=== PATIENT | male | born 1940 | race Caucasian/White ===

== ENCOUNTER 2021-11-27 13:21 | Observation (INO) | payer MEDICARE, OTHER ==
[~2021-11-27] VITALS: Ht 177.8 cm; Wt 90.7 kg
[2021-11-27 14:04] LABS: HEMOGLOBIN 18.6 gm/dl (14.0-17.5); RED BLOOD COUNT 5.42 M/UL (4.20-5.50); WHITE BLOOD COUNT 8.1 K/UL (4.5-11.0)
[2021-11-27 14:32] LABS: BUN/CREATININE RATIO 11 (0-10)
[2021-11-27] MEDS ORDERED: PROAIR HFA8.5 GM INH (16:43)
[2021-11-27] MEDS ORDERED: MELOXICAM15 MG PO (16:44)
[2021-11-27] MEDS ORDERED: MECLIZINE HCL25 MG PO (16:44)
[2021-11-28 02:59] LABS: HEMOGLOBIN 17.1 gm/dl (14.0-17.5); RED BLOOD COUNT 5.29 M/UL (4.20-5.50); WHITE BLOOD COUNT 8.7 K/UL (4.5-11.0)
[2021-11-28 03:50] LABS: BUN/CREATININE RATIO 12 (0-10)
[2021-11-29 02:28] LABS: RED BLOOD COUNT 5.34 M/UL (4.20-5.50); WHITE BLOOD COUNT 10.1 K/UL (4.5-11.0)
[2021-11-29 02:36] LABS: BUN/CREATININE RATIO 15 (0-10)
[2021-11-29] MEDS ORDERED: CEFUROXIME500 MG PO (08:49)
[2021-11-29] MEDS ORDERED: ASPIRIN EC81 MG PO (08:49)
[2021-11-29] MEDS ORDERED: AZITHROMYCIN500 MG PO (08:49)
== END 2021-11-29 11:32 | disposition home health service (06) ==
LOC: ER1 13:21 → CDU 16:29 → M/S 16:29
PROVIDERS: Family Medicine; Physician Assistant; ADMIT Internal Medicine
DX: R42 Dizziness and giddiness (principal); J44.9 Chronic obstructive pulmonary disease, unspecified; R09.02 Hypoxemia; M19.90 Unspecified osteoarthritis, unspecified site; F17.210 Nicotine dependence, cigarettes, uncomplicated; Z99.81 Dependence on supplemental oxygen; Z79.899 Other long term (current) drug therapy; Z79.1 Long term (current) use of non-steroidal anti-inflammatories (NSAID)
CPT/HCPCS: ECHO; 36415; 70450; 70551; 71045; 80048; 80053; 80061; 80307; 81001; 82550; 82553; 84484; 85025; 85027; 93005; 93306; 93880; 96374; 96376; 97161; 97165; 99285; G0378; J0456; J0696; J7030

== ENCOUNTER 2021-12-19 21:07 | Emergency (ER) | payer MEDICARE, OTHER ==
[~2021-12-19 21:07] MED LIST: ASPIRIN EC81 MG PO; AZITHROMYCIN500 MG PO; CEFUROXIME500 MG PO; MECLIZINE HCL25 MG PO; MELOXICAM15 MG PO; PROAIR HFA8.5 GM INH
[2021-12-19 23:45] LABS: HEMOGLOBIN 17.7 gm/dl (14.0-17.5); RED BLOOD COUNT 5.27 M/UL (4.20-5.50); WHITE BLOOD COUNT 7.1 K/UL (4.5-11.0)
[2021-12-20 00:08] LABS: BUN/CREATININE RATIO 13 (0-10)
[2021-12-20] MEDS ORDERED: MONODOX100 MG PO (01:07)
[2021-12-20] MEDS ORDERED: PROVENTIL HFA6.7 GM INH (01:07)
[2021-12-21] MEDS ORDERED: MELOXICAM15 MG PO (11:06)
== END 2021-12-20 01:25 | disposition home or self-care (01) ==
LOC: ER1 21:07
PROVIDERS: Physician Assistant
DX: J44.1 Chronic obstructive pulmonary disease with (acute) exacerbation (principal); F17.210 Nicotine dependence, cigarettes, uncomplicated; Z51.81 Encounter for therapeutic drug level monitoring
CPT/HCPCS: 71045; 80053; 82550; 82553; 83880; 84484; 85025; 85610; 85730; 96365; 99285; J0696; J2930

== ENCOUNTER 2021-12-20 14:03 | Observation (INO) | payer MEDICARE, OTHER ==
[~2021-12-20] VITALS: Ht 177.8 cm; Wt 86.2 kg
[~2021-12-20 14:03] MED LIST changes: +MONODOX100 MG PO; +PROVENTIL HFA6.7 GM INH
[2021-12-20 15:43] LABS: RED BLOOD COUNT 5.29 M/UL (4.20-5.50); WHITE BLOOD COUNT 12.3 K/UL (4.5-11.0)
[2021-12-20 16:19] LABS: BUN/CREATININE RATIO 17 (0-10)
[2021-12-21 06:45] LABS: RED BLOOD COUNT 4.81 M/UL (4.20-5.50); WHITE BLOOD COUNT 14.2 K/UL (4.5-11.0)
[2021-12-21 09:40] LABS: BUN/CREATININE RATIO 20 (0-10)
[2021-12-21] MEDS ORDERED: MELOXICAM15 MG PO (11:06)
--- NOTE | 2021-12-22 11:04 | NUR ---
PT O2 SAT 82%ON ROOM AIR.
[2021-12-22] MEDS ORDERED: YUPELRI175 MCG/3 NEB (12:10)
[2021-12-22] MEDS ORDERED: MEDROL DOSEPAK 24 MG PO (12:10)
[2021-12-22] MEDS ORDERED: HUMIBID LA TAB600 MG PO (12:10)
== END 2021-12-22 15:21 | disposition home or self-care (01) ==
LOC: ER1 14:03 → CDU 18:19 → MED SURG 4 20:55
PROVIDERS: Physician Assistant; ADMIT Internal Medicine
DX: J96.01 Acute respiratory failure with hypoxia (principal); J44.1 Chronic obstructive pulmonary disease with (acute) exacerbation; M16.11 Unilateral primary osteoarthritis, right hip; E87.2 Acidosis; F17.210 Nicotine dependence, cigarettes, uncomplicated; Z20.822 Contact with and (suspected) exposure to COVID-19; Z79.1 Long term (current) use of non-steroidal anti-inflammatories (NSAID); Z79.899 Other long term (current) drug therapy
CPT/HCPCS: 0240U; 36415; 36600; 71045; 71275; 80048; 80053; 82550; 82553; 82803; 83605; 83735; 83880; 84484; 85025; 87040; 93005; 94640; 94760; 96374; 96375; 99285; G0378; J0696; J1100; J1650; Q9967

== ENCOUNTER 2022-02-05 09:33 | Emergency (ER) | payer MEDICARE, OTHER ==
[~2022-02-05 09:33] MED LIST changes: +HUMIBID LA TAB600 MG PO; +MEDROL DOSEPAK 24 MG PO; +YUPELRI175 MCG/3 NEB
[2022-02-05 11:08] LABS: HEMOGLOBIN 13.9 gm/dl (14.0-17.5); RED BLOOD COUNT 4.15 M/UL (4.20-5.50); WHITE BLOOD COUNT 9.6 K/UL (4.5-11.0)
[2022-02-05 11:45] LABS: BUN/CREATININE RATIO 30 (0-10)
== END 2022-02-05 18:01 | disposition home or self-care (01) ==
LOC: ER1 09:33
PROVIDERS: Family Medicine
DX: J44.9 Chronic obstructive pulmonary disease, unspecified (principal); R60.0 Localized edema; F17.210 Nicotine dependence, cigarettes, uncomplicated; Z20.822 Contact with and (suspected) exposure to COVID-19
CPT/HCPCS: 71045; 80053; 82550; 82553; 84484; 85025; 93005; 93971; 94664; 99285; Q9967; U0002